=== PATIENT | male | born 1975 | race Caucasian/White ===

== ENCOUNTER 2016-08-30 11:48 | Emergency (ER) | payer BC, OTHER ==
[2016-08-30 13:16] VITALS: BP 141/76
--- NOTE | 2016-08-30 13:33 | UC ---
Minor Trauma HPI - HPI Summary HPI Summary: Pt presents with fiance. Last evening pt was moving tree limbs. A log flipped up and struck on left distal leg. Pt with ecchymosis and small abrasion. Pt states pain increases with ambulation. no paresthesia. pt has taken Motrin 800mg x 2 doses without relief. Pt as applied ice. Pt reports had some swelling which improved with leg elevation last night. No other injuries Tdap UTD. Pt's medications reviewed at this visit. - History of Current Complaint Chief Complaint: UCLowerExtremity Stated Complaint: left ANKLE INJURY Time Seen by Provider: 08/30/16 13:09 Hx Obtained From: Patient Onset/Duration: Sudden Onset Onset Of Pain: Immediate Severity Initially: Moderate Severity Currently: Moderate - with ambulation, mild at rest Pain Intensity: 3 Pain Scale Used: 0-10 Numeric Mechanism Of Injury: Blunt Trauma, Direct Blow Aggravating Factor(s): Ambulation Alleviating Factor(s): Elevation, OTC Meds Associated Signs And Symptoms: Positive: Ecchymosis, Other: - small abrasion. Negative: Loss Of Consciousness - Allergies/Home Medications Allergies/Adverse Reactions: Allergies Allergy/AdvReac Type Severity Reaction Status Date / Time No Known Allergies Allergy Verified 08/30/16 13:11 Home Medications: Home Medications Ibuprofen TAB* [Motrin TAB*] 800 mg PO Q6H PRN 08/30/16 [History Confirmed 08/30] PMH/Surg Hx/FS Hx/Imm Hx Previously Healthy: Yes Endocrine History Of: Denies: Diabetes, Thyroid Disease, Hyperthyroidism, Hypothyroidism, Dyslipidemia Cardiovascular History Of: Reports: Pacemaker/ICD Denies: Cardiac Disorders, Hypertension, Myocardial Infarction, Congestive Heart Failure, Atrial Fibrillation, Deep Vein Thrombosis, Bleeding Disorders Respiratory History Of: Denies: COPD, Asthma, Bronchitis, Pneumonia, Pulmonary Embolism GI/ History Of: Denies: Gastroesophageal Reflux, Ulcer, Gastrointestinal Bleed, Gall Bladder Disease, Kidney Stones, Diverticulitis, Renal Disease, Urosepsis Neurological History Of: Denies: TIA, CVA, Dementia, Seizures, Migraine Psychological History Of: Denies: Anxiety, Depression, Bipolar Disorder, Schizophrenia, Post Traumatic Stress Disorder Cancer History Of: Denies: Lung Cancer, Colorectal Cancer, Breast Cancer, Prostate Cancer, Cervical Cancer - Surgical History Surgical History: None - Family History Known Family History: Positive: None - Social History Occupation: Employed Full-time Alcohol Use: Occasionally Substance Use Type: None Smoking Status (MU): Former Smoker Type: Cigarettes Length of Time of Smoking/Using Tobacco: On and Off for 3 Years Have You Smoked in the Last Year: No When Did the Patient Quit Smoking/Using Tobacco: 2012 - Immunization History Most Recent Influenza Vaccination: January 2015 Review of Systems Skin: Other - wound distal left LLE Motor: Negative Neurovascular: Negative Musculoskeletal: Other: - left ankle pain Neurological: Negative All Other Systems Reviewed And Are Negative: Yes Physical Exam Triage Information Reviewed: Yes Appearance: Well-Appearing, No Pain Distress, Well-Nourished Vital Signs: Initial Vital Signs Temp 98.3 F 08/30/16 13:11 Pulse 84 08/30/16 13:11 Resp 16 08/30/16 13:11 BP 141/76 08/30/16 13:11 Pulse Ox 98 08/30/16 13:11 Vital Signs Reviewed: Yes Eyes: Negative: Discharge ENT: Positive: Hearing grossly normal Neck: Positive: Supple Respiratory: Positive: No respiratory distress Cardiovascular: Positive: Other: - 2+ DP, PT CBT < 2 sec Abdominal Exam: Normal Musculoskeletal Exam: Normal Musculoskeletal: Positive: Other: - + SLE + flex/ext knee + flex/ext ankle with discomfort distal anterior LE - no crepitus + TTP distal anterior tibia - no crepitus Neurological Exam: Normal - + gross sensation throughout foot Neurological: Positive: Muscle Tone Normal Psychological Exam: Normal Skin: Positive: Other - small abraision with surrround contusion 3x3cm to distal anterior tibia. non suturable Diagnostics - Radiology No standard instances Xray Interpretation: Positive (See Comments) - no fx Radiology Interpretation Completed By: Radiologist Minor Trauma Course/Dx - Course Course Of Treatment: Pt with contusion, abrasion distal anterior sultana s/p struck by log. non suturable. imaging neg. arthur. splint. analgesia. cruthces. ice. [place] prn severe pain - bedtime -precautions discussed. Pts BP elevated at this visit. Advised f/u with PCP in 1-2 weeks - Differential Dx/Diagnosis Provider Diagnoses: contusion, abrasion LLE Discharge - Discharge Plan Condition: Stable Disposition: HOME Prescriptions: Hydrocodone-Acetaminophen [[place] 5-325 mg] 1 - 2 tab PO Q6HR PRN #10 tab MDD 8 PRN Reason: Pain Patient Education Materials: Contusion in Adults (ED), Abrasion (ED) Forms: *Work Release Referrals: HARMAN Lopez [Primary Care Provider] - Additional Instructions: - Okay to alternate ibuprofen (Advil, Motrin) and Tylenol product (tylenol or [place]) every 3 hours for pain. Take with food. Do NOT take for more than 4-5 days - Wear arthur wrap for comfort and support - wear good support walking shoes - Use crutches until you can walk normally without a limp - apply ice (wrapped in a towel) 2-3 times a day for 20 min - Contact your doctor to schedule a follow-up appointment. Contact your doctor or return with questions or concerns
--- NOTE | 2016-08-30 13:42 | RAD ---
INDICATION: Left ankle pain COMPARISON: None TECHNIQUE: AP, lateral, and oblique views were obtained. FINDINGS: There is no acute fracture or dislocation. There is mild medial soft tissue swelling. IMPRESSION: NO ACUTE BONY FINDINGS.
== END 2016-08-30 14:14 | disposition home or self-care (01) ==
LOC: UCCORT 11:48
DX: S80.12XA Contusion of left lower leg, initial encounter (principal); S80.812A Abrasion, left lower leg, initial encounter; W22.8XXA Striking against or struck by other objects, initial encounter; Y93.89 Activity, other specified; Y92.9 Unspecified place or not applicable; Z95.0 Presence of cardiac pacemaker; Z87.891 Personal history of nicotine dependence
CPT/HCPCS: 99213; G0463

== ENCOUNTER 2017-03-11 11:04 | Emergency (ER) | payer BC ==
[2017-03-11 11:31] VITALS: BP 146/93
--- NOTE | 2017-03-11 12:16 | UC ---
Lower Extremity/Ankle HPI - HPI Summary HPI Summary: Patient presents to with CC of 1 week history of R posterior thigh pain. Patient reports pain is localized just below the buttocks to just above the back of the knee, described as shartp and stabbing like. . He denies any SHAHID/ known trauma. He reports pain is worse in the morning and improves over the course of the day. He reports this morning pain was "excruciating" and took 800 motrin to relief pain. 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 He does report pain with ambulation and taking steps however no change in gait per patient. Patient works out regularly , and works as a laborer ammunition assembly. - History of Current Complaint Chief Complaint: UCLowerExtremity Stated Complaint: RIGHT LEG PAIN Time Seen by Provider: 03/11/17 11:49 - Allergies/Home Medications Allergies/Adverse Reactions: Allergies Allergy/AdvReac Type Severity Reaction Status Date / Time No Known Allergies Allergy Verified 03/11/17 11:31 Home Medications: Home Medications Multivitamins/Minerals TAB* [Theragran/minerals TAB*] 1 tab PO DAILY 03/11/17 [ History Confirmed 03/11/17] PMH/Surg Hx/FS Hx/Imm Hx - Additional Past Medical History Additional PMH: see HPI Previously Healthy: Yes - Surgical History Surgical History: None - Family History Known Family History: Positive: None - Social History Alcohol Use: Daily Alcohol Amount: 24 oz vodka a night Substance Use Type: None Smoking Status (MU): Light Every Day Tobacco Smoker Type: Cigarettes Length of Time of Smoking/Using Tobacco: On and Off for 3 Years Have You Smoked in the Last Year: No When Did the Patient Quit Smoking/Using Tobacco: 2012 - Immunization History Most Recent Influenza Vaccination: January 2015 Review of Systems All Other Systems Reviewed And Are Negative: Yes Physical Exam Triage Information Reviewed: Yes Appearance: Well-Appearing, No Pain Distress, Well-Nourished Vital Signs: Initial Vital Signs Temp 97.6 F 03/11/17 11:24 Pulse 78 03/11/17 11:24 Resp 14 03/11/17 11:24 BP 146/93 03/11/17 11:24 Pulse Ox 98 03/11/17 11:24 Vital Signs Reviewed: Yes Eyes: Positive: Conjunctiva Clear ENT: Positive: Normal ENT inspection Neck: Positive: Supple Musculoskeletal Exam: Other - Gait: Normal Tenderness to exam at proximal insertion site of R hamstrings. No palpable abnormality/mass/warmth or overlying erythema. Posterior legs/hamstrings symmetric appearing. No ipsilateral hip or knee pain. AROM and PROM wnl along all planes of R lower extremity. Pedal pulse +2 Right sided. No bony tenderness RLE. Musculoskeletal: Positive: Strength Intact, ROM Intact, No Edema, Other: - Straight leg raise negative bilaterally. Back nontender, normal ROM. Gait: normal. R leg: Point tenderness at insertion site of proximal hamstrings. No quad tenderness. No palpable abnormalirty. Knee inspection normal. MOtor stregth LE 5/5. Sensation intact. Neurological Exam: Normal Neurological: Positive: Alert. Negative: Abnormal Muscle Tone Psychological Exam: Normal Skin Exam: Normal Lower Extremity Course/Dx - Course Course Of Treatment: 41 year old M with 1 week history of R hamstring pain. Pain is localized to this area, without distal or proximal neuropathy. He has point tenderness on exam at prox insertion site without palpable abnormalirty. Discussed findings with patient - advised activity modification, refraining from LE gym workouts until he completes PT regimen. Jax wrap, t/m/ice as needed for pain relief. - Differential Dx/Diagnosis Provider Diagnoses: R hamstring strain Discharge - Discharge Plan Condition: Stable Disposition: HOME Referrals: HARMAN Lopez [Primary Care Provider] - If Needed Additional Instructions: Activity should be as tolerated - but please refrain from lower extremity gym exercises until you've completed formal physical therapy. I recommend tylenol/ motrin with ice/heat as needed for additional pain relief. If your pain worsens or does not improve despite above treatment plan, please refer back to us or your regular doctor to be reevaluated.
== END 2017-03-11 12:31 | disposition home or self-care (01) ==
LOC: UCCORT 11:04
DX: S76.311A Strain of muscle, fascia and tendon of the posterior muscle group at thigh level, right thigh, initial encounter (principal); X58.XXXA Exposure to other specified factors, initial encounter; Y93.9 Activity, unspecified; Y92.9 Unspecified place or not applicable; F17.210 Nicotine dependence, cigarettes, uncomplicated
CPT/HCPCS: 99212; G0463